=== PATIENT | female | born 1990 | race Caucasian/White ===

== ENCOUNTER 2022-01-11 08:39 | Day surgery (SDC) | payer OTHER, SELFPAY ==
[2022-01-09 08:59] VITALS: BMI 27.8
[2022-01-09 09:38] LABS: Basophils % 0.3 %; Eosinophils # 0.1 10^3/uL (0.0-0.8); Eosinophils % 0.9 %; Hematocrit 44.6 % (37.0-47.0); Hemoglobin 14.4 g/dL (11.5-15.3); Lymphocytes # 1.8 10^3/uL (0.8-4.8); Lymphocytes % 19.3 %; Mean Corpuscular HGB Conc 32.3 g/dL (30.0-36.0); Mean Corpuscular Hemoglobin 30.4 pg (28.0-34.0); Mean Corpuscular Volume 94.3 fl (81-99); Mean Platelet Volume 11.3 fL (7.4-10.4); Monocytes # 0.6 10^3/uL (0.2-0.9); Monocytes % 6.1 %; Neutrophils # 6.84 10^3/uL (1.8-7.7); Neutrophils % 73.2 %; Nucleated Red Blood Cells % 0 %; Platelet Count 253 10^3/cmm (130-400); Red Blood Count 4.73 10^6/uL (4.1-5.3); Red Cell Distribution Width 12.7 % (12.1-15.1); White Blood Count 9.3 10^3/uL (4.0-10.0)
[2022-01-09 09:42] LABS: Add Urine Microscopic? NO; Charge for UA Resulting for Rev
[2022-01-09 09:48] LABS: Bilirubin Urine Negative (Negative); Blood Urine Negative (Negative); Glucose Urine UA Negative (Normal); Ketones Urine Negative (Negative); Leukocyte Esterase Urine Negative (Negative); Nitrate Urine Negative; Protein Urine Negative (Negative); Urine Appearance Clear (CLEAR); Urobilinogen Urine 0.2 mg/dL (Negative)
[2022-01-09 09:51] LABS: OR HCG Qualitative Urine Negative (Negative); Urine Color Straw (Yellow)
[2022-01-09 10:07] LABS: Alanine Aminotransferase 29 U/L (0-33); Albumin Level 4.6 g/dL (3.5-5.2); Alkaline Phosphatase 56 U/L (35-105); Anion Gap 13.7 (5-19); Aspartate Amino Transferase 32 U/L (0-32); Blood Urea Nitrogen 8 mg/dL (6-20); Calcium 9.7 mg/dL (8.5-10.5); Carbon Dioxide 26 mmol/L (22-29); Chloride 101 mmol/L (98-107); Globulin 2.8 g/dL (1.3-4.6); Glomerular Filtration Rate 84.8 mL/min (90-130); Glucose 83 mg/dL (65-115); Osmolality Calculated 281 mOsm/kg (285-295); Potassium 3.7 mmol/L (3.5-5.1); Sodium 137 mmol/L (136-145); Total Bilirubin 0.4 mg/dL (0.15-1.2); Total Protein 7.4 g/dL (6.6-8.7)
--- NOTE | 2022-01-09 12:46 | ANES.PREANE2 ---
Pre-Anesthetic Assessment Height/Weight: Height 1.69 m Weight 79.379 kg Preop Diagnosis: Desire permanent sterilization Operation Date: 01/11/22 12:05 Proposed Procedures p Laparoscopic Salpingectomy 29878,Z30.2(Bilateral) - Cheo Pérez MD Familial anesthetic complications: None Was Beta Marie taken within 24 hours: N/A Was Clonidine taken within 24 hours: N/A Social No alcohol and No tobacco Exam alert, oriented x 3, clear to auscultation bilaterally and regular rate & rhythm Airway Submandibular: within normal limits Cervical ROM: within normal limits Mallampati: Class I Dentition: full History/ROS No significant complaints Pulmonary None reported CV/HEM None reported None reported Hepatic None reported GI Gastroesophageal Reflux Disease (Well controlled ) Metabolic None reported Musc/skel None reported Neuropsych None reported Anesthetic Plan ASA status: 1 Anesthesia: Anesthesia Evaluation and General Other: We discussed risk and benefits of general anesthesia including PONV, sore throat (sometimes severe), corneal abrasion, positioning and peripheral nerve injuries, life threatening allergic reaction, post operative ICU admission requiring prolonged intubation, stroke, heart attack, , and rare incidences of recall. Patient consents to proceed with general anesthesia. Risk of > 500 ml blood loss (7ml/kg in children): No Medications/Allergies Home Medications Medication Instructions Recorded Confirmed Last Taken Type No Known Home Medications 01/09/20 01/09/22 Unknown History Allergies Allergy/AdvReac Type Severity Reaction Status Date / Time No Known Allergies Allergy Verified 01/09/22 08:58 PFS Anesthesia Medical History No pertinent past medical history neghx: htn,dm,thyroid,dvt/pe Surgical History H/O hernia repair (~1995) Right-sided inguinal hernia repair--patient is unsure of mesh was used as she was only 5 years old at the time. Family History Grandfather Diabetes Paternal grandfather Father Hypertension Denies family history of Colon cancer Ovarian cancer Heart disease Hyperlipidemia Breast cancer Anesthesia complication Family history of thyroid problem Bleeding disorder Uterine cancer Stroke Social History (Reviewed 01/09/22 @ 12:46 by NADER Locke Smoking and tobacco status: never smoked Data Anesthesia : 01/09/22 09:10 01/09/22 09:10 Short CBC 01/09/22 Range/Units 09:10 WBC 9.3 (4.0-10.0) 10^3/uL Hgb 14.4 (11.5-15.3) g/dL Hct 44.6 (37.0-47.0) % MCV 94.3 (81-99) fl Plt Count 253 (130-400) 10^3/cmm Neut % (Auto) 73.2 % Neut # (Auto) 6.84 (1.8-7.7) 10^3/uL BMP 01/09/22 09:10 Sodium 137 Potassium 3.7 Chloride 101 Carbon Dioxide 26 BUN 8 Creatinine 0.8 Glucose 83 Calcium 9.7 Liver Function 01/09/22 Range/Units 09:10 Total Bilirubin 0.4 (0.15-1.2) mg/dL AST 32 (0-32) U/L ALT 29 (0-33) U/L Alkaline Phosphatase 56 (35-105) U/L Albumin 4.6 (3.5-5.2) g/dL Urine 01/09/22 Range/Units 09:15 Urine Color Straw (Yellow) Urine Appearance Clear (CLEAR) Urine pH 7.0 (5-7) Ur Specific [place] 1.010 (1.005-1.030) Urine Protein Negative (Negative) Urine Glucose (UA) Negative (Normal) Urine Ketones Negative (Negative) Urine Nitrate Negative Urine Bilirubin Negative (Negative) Ur Leukocyte Esterase Negative (Negative) Blood Bank 01/09/22 09:10 Blood Type O Positive Rho(D) Type Positive Antibody Screen Negative Cardiac Studies: No Data to Display
[2022-01-11] VITALS (9 sets, daily range): BP systolic 103–123; BP diastolic 77–87; PULSE 54–80; RESP 16–20; TEMP 36.3–36.9; O2SAT 96–100
[2022-01-11] MEDS: sodium chloride 0.9% 500 ML IV (09:27)
[2022-01-11] MEDS: scopolamine 1.5 Patch 1 PATCH TRANSDERMA (09:27)
--- NOTE | 2022-01-11 09:38 | P.ANESUD_ITS ---
Pre-Anesthetic Update Pre-Anesthetic Assessment: Date of Surgery/Procedure: 01/11/22 Preop Cinda gnosis: Desire permanent sterilization Proposed Procedure: Operation Date: 01/11/22 10:40 Proposed Procedures p Laparoscopic Salpingectomy 43845,Z30.2(Bilateral) - Cheo Pérez MD Any changes to Pre-Anesthetic Assessment?: Yes Changes from Pre-Anesthetic Assessment: Patient has had runny nose last day. Non purulent, denies cough, no fever, no malaise. We discussed possible increased risk of respiratory complication w/ continuing today. Patient would like to proceed. Last Intake: Intake Last Liquid Date 01/10/22 Last Liquid Time 23:30 Last Solid Date 01/10/22 Last Solid Time 18:00 Labs Last 48hrs: Short CBC 01/09/22 Range/Units 09:10 WBC 9.3 (4.0-10.0) 10^3/ uL Hgb 14.4 (11.5-15.3) g/dL Hct 44.6 (37.0-47.0) % MCV 94.3 (81-99) fl Plt Count 253 (130-400) 10^3/c mm Neut % (Auto) 73.2 % Neut # (Auto) 6.84 (1.8-7.7) 10^3/u L BMP 01/09/22 09:10 Sodium 137 Potassium 3.7 Chloride 101 Carbon Dioxide 26 BUN 8 Creatinine 0.8 Glucose 83 Calcium 9.7 Liver Function 01/09/22 Range/Units 09:10 Total Bilirubin 0.4 (0.15-1.2) mg/dL AST 32 (0-32) U/L ALT 29 (0-33) U/L Alkaline Phosphata se 56 (35-105) U/L Albumin 4.6 (3.5-5.2) g/dL Urine 01/09/22 Range/Units 09:15 Urine Color Straw (Yellow) Urine Appearance Clear (CLEAR) Urine pH 7.0 (5-7) Ur Specific [place] y 1.010 (1.005-1.030) Urine Protein Negative (Negative) Urine Glucose (UA) Negative (Normal) Urine Ketones Negative (Negative) Urine Nitrate Negative Urine Bilirubin Negative (Negative) Ur Leukocyte Madai ase Negative (Negative) Blood Bank 01/09/22 09:10 Blood Type O Positive Rho(D) Type Positive Antibody Screen Negative Vitals: Temperature 98 F 01/11/22 09:04 Temperature Source Temporal Artery S can 01/11/22 09:04 Pulse Rate 80 01/11/22 09:04 Pulse Rhythm 01/11/22 09:04 Pulse Strength 3+ Normal 01/11/22 09:04 Respiratory Rate 18 01/11/22 09:04 Blood Pressure 113/87 01/11/22 09:04 Blood Pressure Jennifer n 95 01/11/22 09:04 Pulse Oximetry 100 01/11/22 09:04 Oxygen Delivery Me thod 01/11/22 09:04 Exam: Pre-Anes Outpt Exam: alert, oriented x 3, clear to auscultation bilaterally and regular rate & rhythm Cardiac Studies: No Data to Display
--- NOTE | 2022-01-11 10:41 | W.PM.OPSUD ---
Surgery/Procedure H&P Update DATE OF PROCEDURE: January 11, 2022 DATE H&P PERFORMED: 01/09/22 H&P UPDATE INFORMATION: I have reviewed H&P completed within last 30 days, I have examined patient prior to procedure and No changes to prior documentation PREOP DIAGNOSIS: Desire permanent sterilization PLANNED PROCEDURE: Operation Date: 01/11/22 10:40 Proposed Procedures p Laparoscopic Salpingectomy 22896,Z30.2(Bilateral) - Cheo Pérez MD
[2022-01-11] MEDS: ceFAZolin 2,000 MG in sodium chloride 0.9% (plus) 50 ML 100 MG IV (11:01)
[2022-01-11] MEDS: sodium chloride 0.9% 1,000 ML 30 ML IV (11:05)
--- NOTE | 2022-01-11 12:08 | PM.OP ---
Operative Report Date of procedure: January 11, 2022 Pre-op diagnosis: Preop Diagnosis Desire permanent sterilization Post-op diagnosis: Same as above Post-op findings: My corneous uterus Procedure done: Laparoscopic bilateral salpingectomy Specimens removed/disposition: Left and right fallopian tube Surgeon: Cheo Pérez MD Estimated blood loss (mL): 5 IV fluids (mL): 700 Urine output (mL): 400 Procedure: After informed consent, the patient was taken to the operating room where general anesthesia was administered. She was placed in the dorsal lithotomy position and prepped and draped in sterile fashion. Pre-Procedure Time-Out verifying the correct patient identity, correct procedure verified with consent, correct site and side, correct patient position, availability of correct implants and any special equipment or requirements was performed and acknowledge by the OR team. The patient was examined under anesthesia and found to have a normal uterus with normal adnexa. A weighted speculum was placed in the vagina, and the anterior lip of cervix was grasped with the single toothed tenaculum. A uterine manipulator was advanced into the endocervical canal and uterus. The tenaculum was removed after uterine manipulator was secured. The speculum was removed from the vagina. An intraumbilical incision was made with a scalpel. While tenting up on the abdomen, a Verres needle was admitted into the intra-abdominal cavity. A saline drop test was performed and noted to be within normal limits. Pneumoperitoneum was attained with 4 liters of carbon dioxide. The Verres needle was removed. A 5 mm Opitc view trocar and sleeve were admitted into the abdomen and laparoscopic confirmation of location was achieved. A second incision was made 3 cm above the symphysis pubis, and a 5 mm trocar sleeves were admitted into the abdomen under direct laparoscopic visualization without complication. A survey revealed normal abdominal anatomy with the exception of string adhesion to the right lower anterior abdominal wall. A 5 mm blunt probe was advanced through the second trocar sleeve, and light manipulation of ovaries and uterus to assess the posterior aspects was performed. The pelvic survey shows normal uterus, left and right adnexa. The left ovary was noted with a follicular cyst. The string adhesion was fulgurated and transected with good hemostasis with the Ligasure. The patient was placed into Trendelenburg position. The fallopian tubes were inspected bilaterally and the fimbriated ends of the fallopian tubes were visualized bilaterally. Attention was then directed to the right side. The fallopian tube and mesosalpinx were grasped and the underlying mesosalpinx was cauterized and cut using the Ligasure device. Serial cauterization and cutting was used to separate the fallopian tube from the underlying mesosalpinx until it could be amputated cutting it approximated 2 cm from the cornua. Attention was then turned to the contralateral fallopian tube, which was removed in similar fashion. Both specimens were removed through the trocar and sent to pathology. The instruments were removed. The suprapubic trocar port was removed under direct visualization insuring good hemostasis. The carbon dioxide was allowed to escape from the abdomen. The intraumbilical trocar sleeve was withdrawn under visualization with laparoscope in the sleeve to insure hemostasis. The skin incisions were closed with 3-O Monocryl subcuticular stich and Dermabond. The instruments were removed from the vagina, and excellent hemostasis was noted. The patient tolerated the procedure well, and sponge, lap and needle count were correct times two. The patient was taken to the recovery room in good condition.
--- NOTE | 2022-01-11 12:38 | SUR.PHASEI ---
1217 PT TO PACU 5 PT AWAKES TO VOICE, MONITOR SR WITH NO ECTOPY, IV TO RT AC WITH NS 400ML AT KVO RATE PER GRAVITY, ID BRACELET TO RT WRIST PT ID'D WITH 2 IDENIFIERS, ABDOMEN SOFT WITH 2 SITES WITH SKIN GLUE D/I PATRICIA PAD D/I BILAT SCDS ON.
[2022-01-11] MEDS: HYDROcodone-acetaminophen 5-325 mg Tablet 1 TAB PO (13:31)
--- NOTE | 2022-01-11 13:34 | ANE.PACU2 ---
Inpatient post-anesthesia follow up: Airway intact: Yes Vital signs: Temperature 97.4 F Pulse Rate 67 Respiratory Rate 18 Blood Pressure 105/86 Pulse Oximetry 98 Oxygen Delivery Me thod Room Air Oxygen Flow Rate 8 Fraction of Inspir ed Oxygen Hydration adequate: Yes Nausea and vomiting: No Pain level: 1 Mental status: Baseline
== END 2022-01-11 14:05 | disposition home or self-care (01) ==
PROVIDERS: PCP Family Medicine; Visit Provider Obstetrics & Gynecology
PROC: (CPT 58661; principal; 2022-01-11 10:30)
DX: Z30.2 Encounter for sterilization (principal); K21.9 Gastro-esophageal reflux disease without esophagitis
CPT/HCPCS: 58661; 36415; 80053; 81003; 81025; 84703; 85025; 86850; 86900; 88302; J0330; J0461; J1100; J1885; J2250; J2405; J2704; J2710; J3010; J3490; J7030; J7040

== ENCOUNTER → 2024-11-18 09:28 | Outpatient (BNVA) | payer OTHER, SELFPAY | PROVIDERS: PCP Family Medicine; Visit Provider Nurse Practitioner | DX: R35.0 Frequency of micturition (principal); N39.0 Urinary tract infection, site not specified | CPT/HCPCS: 81000; 87077; 87086; 87184 ==

== ENCOUNTER → 2025-02-23 13:38 | Outpatient (BNVA) | payer OTHER, SELFPAY | PROVIDERS: PCP Family Medicine; Visit Provider Nurse Practitioner | DX: N39.0 Urinary tract infection, site not specified (principal); R56.9 Unspecified convulsions | CPT/HCPCS: 80053; 84443; 85025 ==